=== PATIENT | male | born 1965 | race Caucasian/White ===

== ENCOUNTER 2019-05-26 12:33 | Emergency (ER) | payer OTHER ==
[~2019-05-26 12:33] MED LIST: DIA5 PO
[2019-05-26 12:37] VITALS: BP 127/66
--- NOTE | 2019-05-26 12:39 | ER Report ---
History and Physical Time Seen By MD: 12:37 HPI/ROS CHIEF COMPLAINT: Scapular dislocation HISTORY OF PRESENT ILLNESS: This is a 54-year-old male who presents to the emergency department for a scapular dislocation. Patient states that he was at work today and dislocated his left scapula. Patient has a history of scapular dislocations, we'll get one x-ray and reduce the scapula. Patient does not want sedation or pain medications following the reduction. He denies chest pain or shortness breath. No fevers or chills. CMS intact distal to the dislocation. REVIEW OF SYSTEMS: Respiratory: No cough, no dyspnea. Cardiovascular: No chest pain, no palpitations. Gastrointestinal: No vomiting, no abdominal pain. Musculoskeletal: As above. Allergies: Coded Allergies: barley (Verified Allergy, Intermediate, ANAPHYLAXIS, 05/26/19) NSAIDS (Non-Steroidal Anti-Inflamma (Unverified Allergy, Mild, UNKNOWN, 05/26/19) Home Meds No Active Prescriptions or Reported Meds Past Medical/Surgical History The patient has a past medical and surgical history of left scapular dislocation, smokes cigarettes. Reviewed Nurses Notes: Yes Hx Smoking: Yes (1PPD) Smoking Status: Heavy Tobacco Smoker Exposure to Second Hand Smoke?: No Hx Substance Use Disorder: No Hx Alcohol Use: No Constitutional Vital Sign - Last 24 Hours 05/26/19 12:37 Temp 98.2 Pulse 84 Resp 20 B/P (MAP) 127/66 Pulse Ox 93 Physical Exam General Appearance: The patient is alert, has no immediate need for airway protection and no current signs of toxicity. Eyes: Pupils equal and round no injection. Respiratory: Chest is non tender, lungs are clear to auscultation. Cardiac: regular rate and rhythm. Gastrointestinal: Abdomen is soft and non tender, no masses, bowel sounds normal. Musculoskeletal: Neck: Neck is supple and non tender. Extremities left scapular dislocation, trapezius muscle and shoulder very tense, no crepitus or other deformities identified. CMS intact distal to the injury. Skin: No rashes or lesions. DIFFERENTIAL DIAGNOSIS: After history and physical exam differential diagnosis was considered for shoulder dislocation, shoulder fracture, scapular dislocation, scapular fracture, torticollis. Medical Decision Making EKG/Imaging Imaging PATIENT NAME: Bernardo Monroy : 1965 MR: [id number] V: [id number] EXAM DATE: ORDERING PHYSICIAN: VICKY GAYTAN TECHNOLOGIST: Location: [facility] Patient: Bernardo Monroy : 1965 Visit/Account:[id number] Date of Sevice: 05/26/2019 Exam: SCAPULA LEFT Indication: dislocation of scapula, RAD Comparison: 04/25/2014 Findings: Reidentified and fairly similar in appearance is lateral displacement rotation of the scapula. No fracture is identified. Acromioclavicular joint and glenohumeral alignment is intact Visualized lung apices are clear. IMPRESSION: 1. Recurrent scapular dislocation similar in appearance to 2013 Report Dictated By: Qasim Meng at 05/26/2019 2:31 PM Report E-Signed By: Qasim Meng at 05/26/2019 2:43 PM WSN:[email or web address] ED Course/Re-evaluation ED Course Patient was admitted to room. A history and physical were obtained. Differential diagnoses were considered. Patient was evaluated, a left x-ray was obtained showing a left scapular dislocation, patient was given 2 mg IM Dilaudid initially with moderate relief of his pain, patient also had another 1 mg IM Di laudid, we did attempt to reductions, we did have a positive reduction of the left scapula on the 2nd try. Patient had significant relief of symptoms. 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 No other questions or concerns at this time discharged home. Procedure: Dislocation reduction: The left scapula was reduced in the usual fashion without complications. Post reduction the patient's neurovascular exam is normal. Post reduction x-ray demonstrates reduction of the joint to the anatomic position. The procedure was performed by myself, Dr. Mckinney and JOSE Dela Cruz. Decision to Disposition Date: May 26, 2019 Decision to Disposition Time: 13:53 Depart Departure Latest Vital Signs Vital Signs Date Time Temp Pulse Resp B/P (MAP) Pulse Ox O2 Delivery O2 Flow Rate FiO2 05/26/19 12:37 98.2 84 20 127/66 93 Impression: Primary Impression: Closed dislocation of scapula Condition: Improved Disposition: HOME OR SELF-CARE New Scripts No Active Prescriptions or Reported Meds Patient Instructions: Shoulder Pain (ED) Additional Instructions: Take it easy today, you have had a lot of medicine, no driving or operating machinery. Drink plenty of water. Get plenty of rest. Return to the ED for any other concerns or worsening symptoms. Problem Qualifiers Primary Impression: Closed dislocation of scapula Encounter type: initial encounter Laterality: left Qualified Codes: S43.315A - Dislocation of left scapula, initial encounter VICKY GAYTAN DIRECTOR OF COMMUNITY EDUCATION-BC May 26, 2019 12:39
[2019-05-26] MEDS ORDERED: HYDROmorphone HCL 2 MG/ML SDV IM ONE ×2 (12:50→13:30)
--- NOTE | 2019-05-26 14:49 | RADIOLOGY IMAGING REPORT ---
FACILITY: [facility] PATIENT NAME: Bernardo Monroy : 1965 MR: [id number] V: [id number] EXAM DATE: ORDERING PHYSICIAN: VICKY GAYTAN TECHNOLOGIST: [facility] Patient: Bernardo Monroy : 1965 Visit/Account:[id number] Date of Sevice: 05/26/2019 Exam: SCAPULA LEFT Indication: dislocation of scapula, RAD Comparison: 04/25/2014 Findings: Reidentified and fairly similar in appearance is lateral displacement rotation of the scapu la. No fracture is identified. Acromioclavicular joint and glenohumeral alignment is intact Visualized lung apices are clear. IMPRESSION: 1. Recurrent scapular dislocation similar in appearance to 2013 Report Dictated By: Qasim Meng at 05/26/2019 2:31 PM Report E-Signed By: Qasim Meng at 05/26/2019 2:43 PM WSN:[id number]
== END 2019-05-26 13:59 | disposition home or self-care (01) ==
LOC: ER 12:53
DX: S43.315A Dislocation of left scapula, initial encounter (principal)
CPT/HCPCS: 23650; 73010; 96372; 99284; J1170

== ENCOUNTER 2019-05-31 14:43 | Emergency (ER) | payer OTHER ==
[2019-05-31] MEDS ORDERED: HYDROMORPHONE HCL 1 MG/ML SYRINGE IVP ONE (14:45)
--- NOTE | 2019-05-31 14:45 | ER Report ---
"History and Physical Time Seen By MD: 14:43 HPI/ROS CHIEF COMPLAINT: Left scapular dislocation HISTORY OF PRESENT ILLNESS: Patient is a 54-year-old male here with complaints of left scapular dislocation which occurred shortly prior to arrival. Patient was here recently with similar symptoms. Patient is neurovascularly intact in the distal extremity. Plan for orthopedic surgery in the future. REVIEW OF SYSTEMS: Constitutional: No fever, no chills. Musculoskeletal: Left scapular dislocation Skin: No rashes. Neurological: Neurovascular exam intact in distal upper extremity Allergies: Coded Allergies: barley (Verified Allergy, Intermediate, ANAPHYLAXIS, 05/31/19) NSAIDS (Non-Steroidal Anti-Inflamma (Unverified Allergy, Mild, UNKNOWN, 05/31/19) Home Meds No Active Prescriptions or Reported Meds Hx Smoking: Yes (1PPD) Smoking Status: Heavy Tobacco Smoker Exposure to Second Hand Smoke?: No Hx Substance Use Disorder: No Hx Alcohol Use: No Constitutional Vital Sign - Last 24 Hours 05/31/19 05/31/19 05/31/19 05/31/19 14:44 14:47 14:57 15:00 Temp 98.8 Pulse 86 Resp 20 B/P (MAP) 116/90 (99) 116/90 123/80 (94) 123/80 (94) Pulse Ox 93 O2 Delivery Room Air 05/31/19 05/31/19 05/31/19 15:13 15:25 15:30 Pulse 88 B/P (MAP) 147/101 (116) 124/95 (105) Pulse Ox 90 Physical Exam General Appearance: The patient is alert, has no immediate need for airway protection and no signs of toxicity. No acute distress Neurological: Neurovascular exam intact in the distal left upper extremity Skin: Warm and dry, no rashes. Musculoskeletal: Pain with range of motion of the left upper extremity and shoulder DIFFERENTIAL DIAGNOSIS: After history and physical exam differential diagnosis was considered for scapular dislocation, fracture, shoulder dislocation Medical Decision Making EKG/Imaging Imaging Please see official radiology report for x-ray imaging results ED Course/Re-evaluation ED Course Patient is a 54-year-old male here with complaints of recurrent left scapular dislocation. X-ray imaging confirmed dislocation. No acute fractures were identified. Patient is neurovascularly intact in the distal left upper extremity. Patient was given 2 mg Dilaudid IM. Initial attempt was unsuccessful so patient was given 2 more milligrams of Dilaudid. Scapula was reduced palling longitudinal traction on the left upper extremity and applying| pressure on the tip of the scapula. Dislocation was successfully reduced. Patient is neurovascularly intact post reduction. Return precautions provided. Decision to Disposition Date: May 31, 2019 Decision to Disposition Time: 15:49 Depart Departure Latest Vital Signs Vital Signs Date Time Temp Pulse Resp B/P (MAP) Pulse Ox O2 Delivery O2 Flow Rate FiO2 05/31/19 15:30 124/95 (105) 05/31/19 15:13 88 90 05/31/19 14:47 98.8 20 Room Air Impression: Primary Impression: Closed dislocation of scapula Condition: Improved Disposition: HOME OR SELF-CARE New Scripts No Active Prescriptions or Reported Meds Additional Instructions: Please follow up with orthopedics for further evaluation and definitive treatment. Please return if you develop numbness, worsening pain, recurrent dislocation. DEANN SINGLETON DO May 31, 2019 14:45"
[2019-05-31 15:30] VITALS: BP 124/95
[2019-05-31] MEDS ORDERED: HYDROMORPHONE HCL 1 MG/ML SYRINGE IM ONE (15:30)
--- NOTE | 2019-05-31 15:52 | RADIOLOGY IMAGING REPORT ---
FACILITY: [facility] PATIENT NAME: Bernardo Monroy : 1965 MR: [id number] V: [id number] EXAM DATE: ORDERING PHYSICIAN: DEANN SINGLETON TECHNOLOGIST: Location: [facility] Patient: Bernardo Monroy : 1965 Visit/Account:[id number] Date of Sevice: 05/31/2019 3 views left shoulder Indication: History of shoulder dislocations. Patient refused additional views. Comparison: X-ray examination from May 26 Findings: Alignment is anatomic in the right shoulder without fracture or destructive osseous process. IMPRESSION: 1. Single view right shoulder demonstrates anatomic alignment without acute finding. Report Dictated By: Marko Zapata MD at 05/31/2019 3:45 PM Report E-Signed By: Marko Zapata MD at 05/31/2019 3:45 PM WSN:[id number]
== END 2019-05-31 15:57 | disposition home or self-care (01) ==
LOC: ER 14:48
DX: S43.315A Dislocation of left scapula, initial encounter (principal)
CPT/HCPCS: 23650; 73030; 96372; 96374; 99284; J1170

== ENCOUNTER 2019-05-31 22:27 | Emergency (ER) | payer OTHER ==
--- NOTE | 2019-05-31 22:28 | ER Report ---
History and Physical Time Seen By MD: 22:26 HPI/ROS CHIEF COMPLAINT: Recurrent scapular dislocation HISTORY OF PRESENT ILLNESS: Patient is missing multiple times in the emergency department actually earlier today for recurrent chronic left scapular dislocation. He is requesting IM pain medication and reduction in this manner. He is refusing any IV procedural sedation. He is scheduled for surgery in the next few weeks to hopefully fix this problem. The electronic medical record was reviewed. Patient was seen earlier today received a total of 4 mg of IM Dilaudid and then had successful reduction. REVIEW OF SYSTEMS: Extremities: Left scapular dislocation Allergies: Coded Allergies: barley (Verified Allergy, Intermediate, ANAPHYLAXIS, 05/31/19) NSAIDS (Non-Steroidal Anti-Inflamma (Unverified Allergy, Mild, UNKNOWN, 05/31/19) Home Meds No Active Prescriptions or Reported Meds Past Medical/Surgical History Recurrent left scapular dislocation Hx Smoking: Yes (1PPD) Smoking Status: Heavy Tobacco Smoker Exposure to Second Hand Smoke?: No Hx Substance Use Disorder: No Hx Alcohol Use: No Constitutional Vital Sign - Last 24 Hours 05/31/19 22:29 Temp 98.2 Pulse 93 Resp 16 B/P (MAP) 120/82 Pulse Ox 94 O2 Delivery Room Air Physical Exam General Appearance: The patient is alert, has no immediate need for airway protection and no current signs of toxicity. Musculoskeletal: Neck: Neck is supple and non tender. Extremities Patient with a deformity to the left shoulder consistent with scapular dislocation. Skin: No rashes or lesions. Medical Decision Making EKG/Imaging Imaging X-ray shows dislocation of left scapula ED Course/Re-evaluation ED Course 05/31/2019 11:05:10 pm initial attempt at reduction after 2 mg of IM Dilaudid was unsuccessful. We'll re-dose of IM Dilaudid and reattempt 05/31/2019 11:14:53 pm patient receives another 2 mg of IM Dilaudid with successful reduction of the shoulder and scapular dislocation. We'll discharge home Decision to Disposition Date: May 31, 2019 Decision to Disposition Time: 23:15 Depart Departure Latest Vital Signs Vital Signs Date Time Temp Pulse Resp B/P (MAP) Pulse Ox O2 Delivery O2 Flow Rate FiO2 05/31/19 22:29 98.2 93 16 120/82 94 Room Air Impression: Primary Impression: Closed dislocation of scapula Condition: Improved Disposition: HOME OR SELF-CARE New Scripts No Active Prescriptions or Reported Meds Additional Instructions: Follow-up as scheduled with orthopedics for your impending surgery Problem Qualifiers Primary Impression: Closed dislocation of scapula Encounter type: subsequent encounter Laterality: left Qualified Codes: S43.315D - Dislocation of left scapula, subsequent encounter MERRITT MACARIO MD May 31, 2019 22:28
[2019-05-31 22:29] VITALS: BP 120/82
[2019-05-31] MEDS ORDERED: HYDROmorphone HCL 2 MG/ML SDV IM ONE ×2 (22:35→23:00)
[2019-05-31] MEDS ORDERED: HYDROmorphone HCL 2 MG/ML SDV ONE (22:59)
--- NOTE | 2019-05-31 23:16 | RADIOLOGY IMAGING REPORT ---
FACILITY: [facility] PATIENT NAME: Bernardo Monroy : 1965 MR: [id number] V: [id number] EXAM DATE: ORDERING PHYSICIAN: MERRITT MACARIO TECHNOLOGIST: Location: [facility] Patient: Bernardo Monroy : 1965 Visit/Account:[id number] Date of Sevice: 05/31/2019 EXAMINATION: Left shoulder one view HISTORY: Scapular dislocation COMPARISON: Prior study of earlier today FINDINGS: There is abnormal moderate rotation of the left scapula compatible with a scapular dislocation. This appears unchanged from the prior examination. No evidence of fracture. Alignment is maintained at the glenohumeral and acromioclavicular joints. IMPRESSION: Abnormal positioning of the scapula compatible with scapular dislocation. Report Dictated By: Willy Wong MD at 05/31/2019 11:03 PM Report E-Signed By: Willy Wong MD at 05/31/2019 11:11 PM WSN:[id number]
== END 2019-05-31 23:19 | disposition home or self-care (01) ==
LOC: ER 22:34
DX: M24.412 Recurrent dislocation, left shoulder (principal)
CPT/HCPCS: 23650; 73020; 96372; 99284; J1170